=== PATIENT | female | born 1945 | race Caucasian/White ===

== ENCOUNTER 2017-01-21 19:16 | Observation (INO) | payer MEDICARE, BC ==
--- NOTE | ~2017-01-21 | HP ---
History And Physical [id number] [place]. [address] NAME: JC BAUTISTA : 49 STATUS : ADM Anthony PAT#: [id number] AGE: 71 ADM/REG DATE : 01/21/17 MR#: [id number] REPORT SERV DATE: 01/22/17 DICTATED BY: MUNIRA CHAPIN DATE: 01/22/17 REPORT STATUS : Draft TRANSCRIBED BY: KAMINI DATE: 01/22/17 DATE OF ADMISSION: 01/21/2017 CHIEF COMPLAINT: Atypical chest pain. HISTORY OF PRESENT ILLNESS: A very pleasant 71-year-old white female with no known history of CAD, states that for the last two days, she has been somewhat light headed. She reports a right-sided headache occurring yesterday after doing some housework around 1200 hours, she experienced some midsternal chest pain or pressure. The house work included some light sweeping and mopping, and making her bed. She reports associated shortness of breath and dizziness. Denies nausea, diaphoresis, or belching. She reports that the chest discomfort radiated up towards her jaw. At its most intense, she rated the chest pain as 7/10. At the time of interview in the CPOU, she rates it a 0, but has a residual "funny feeling and flutter." Review of bedside telemetry reveals no ectopy captured. She did take an aspirin prior to coming to the hospital. The patient denies any personal history of myocardial infarction, stroke, DVT, or pulmonary embolus. The patient was treated for the flu, 10/2016, describes rare palpitations. Consumes one cup of coffee per day. No syncopal episodes. Denies PND or orthopnea. PAST MEDICAL HISTORY: 1. Hypertension. 2. Dyslipidemia. 3. AODM. 4. GERD. 5. Chronic pain. 6. Gout. PAST SURGICAL HISTORY: 1. Cholecystectomy. 2. Hiatal hernia repair. 3. Right arm melanoma, removed. 4. Multiple skin cancers, removed. 5. Left arthroscopic repair of the left knee. 6. Hysterectomy. SOCIAL HISTORY: She is with two children. She is retired from [employer] Walks or works out three to four times weekly, most recently one week ago, limited by gout of the right great toe. Denies tobacco or illicits. Drinks socially. FAMILY HISTORY: Mother with questionable TIAs, at the age of 79. Father with heart attack in his 70s and 80s, at the age of 94 with a history of colon cancer. REVIEW OF SYSTEMS: A 14-point review of systems was performed, significant for HPI including home blood sugars of 115, and systolic blood pressure of 120. Otherwise complete review of systems was History And Physical [address] [address] NAME: JC BAUTISTA : 49 STATUS : ADM Anthony PAT#: [id number] AGE: 71 ADM/REG DATE : 01/21/17 MR#: [id number] REPORT SERV DATE: 01/22/17 DICTATED BY: MUNIRA CHAPIN DATE: 01/22/17 REPORT STATUS : Draft TRANSCRIBED BY: KAMINI DATE: 01/22/17 obtained and negative. ALLERGIES: NO KNOWN DRUG ALLERGIES. HOME MEDICAITONS: Lotrel 5/20 daily; Artificial Tears p.r.n.; atenolol 100 mg daily; diclofenac 75 mg nightly; Lasix 20 mg daily; hydrocodone 5/325 half to one tablet twice daily p.r.n.; melatonin 5 mg nightly; Glucophage 1000 mg in the morning, 500 p.r.n. at bedtime; omeprazole 40 mg daily; Pravachol 80 mg daily; Desyrel 50 mg nightly p.r.n.; and allopurinol p.r.n. PHYSICAL EXAMINATION: BLOOD PRESSURE: Bilateral blood pressures on arrival, right 170/79, left 179/83, this morning 158/72. PULSE: 67, RESPIRATORY RATE: 17, TEMPERATURE: 97.7, O2 saturation 97% on room air. HEIGHT: 5 feet 5 inches. WEIGHT: 156 pounds. BMI of 26 GENERAL: Cooperative, in no apparent distress. HEENT: Pupils 2 mm, sclera nonicteric. Nares patent. Moist mucous membranes. No xanthelasma. NECK: Trachea midline, no thyromegaly. No JVD. No bruits. LYMPH: No cervical lymphadenopathy. No supraclavicular lymphadenopathy. CHEST: Tender to palpation across the anterior chest wall eliciting a wince and withdrawal. CARDIOVASCULAR: Regular rate. No murmur, rub, or gallop appreciated. EXTREMITIES: Right great toe, inflamed and warm to touch. ABDOMEN: Soft, nontender, nondistended, normal bowel sounds auscultated throughout. No organomegaly. SKIN: Warm, dry extremities. No pallor, or cyanosis. PSYCHIATRIC: Appropriate affect. Alert, oriented x3. LABORATORY DATA: The troponin less than 0.02 x4. Potassium 4.6, BUN 20, creatinine 0.94, glucose 117, and magnesium 1.9. WBC 6.7, hemoglobin 11.7, hematocrit 34.8, and platelet count of 243,000. EKG; sinus rhythm. ASSESSMENT AND PLAN: 1. Atypical chest pain which is also reproducible on exam, but multiple risk factors. The patient has been observed in the CPOU overnight to rule out myocardial infarction with serial enzymes and serial EKGs and held n.p.o. We will proceed with MPI today. The patient will be discharged home if low risk, no ischemia. If anything suggestive of ischemia, Cardiology referral will be initiated. Otherwise, the patient will be asked to follow up with her PCP in one to two weeks with all studies being sent to that office. 2. Hypertension. Monitor blood pressure. Continue home medications as warranted. Hold beta-logan and CCB. Resume both after MPI. 3. Dyslipidemia. Continue statin. 4. Adult onset diabetes mellitus. Hold metformin, level 1 sliding scale correction as warranted. 5. Probable gout, right great toe, has allopurinol at home, instructed to take as prescribed and/or call PCP for renewal of prescription. History And Physical [address] [address] NAME: JC BAUTISTA : 49 STATUS : ADM Anthony PAT#: [id number] AGE: 71 ADM/REG DATE : 01/21/17 MR#: [id number] REPORT SERV DATE: 01/22/17 DICTATED BY: MUNIRA CHAPIN DATE: 01/22/17 REPORT STATUS : Draft TRANSCRIBED BY: KAMINI DATE: 01/22/17 JETT/KAMINI Munira Chapin, MSN, [employer] / [id number] CC: Munira Chapin, MSN, [facility] Verna Bauer D.O.
[2017-01-21 16:07] LABS: BASOPHILS 0.3 %; BASOPHILS ABSOLUTE 0.02 10/3/uL (0.0-0.16); EOSINOPHILS 1.3 %; EOSINOPHILS ABSOLUTE 0.09 10/3/uL (0.0-0.53); ER CBC TAT 0 Hrs 08 Mins; HEMATOCRIT 34.8 % (36.0-48.0); HEMOGLOBIN 11.7 g/dL (12.0-16.0); IMMATURE GRANULOCYTES 0.3 %; IMMATURE GRANULOCYTES ABSOLUTE 0.02 10/3/uL (0.0-0.11); LYMPHOCYTES 33.7 %; LYMPHOCYTES ABSOLUTE 2.27 10/3/uL (0.67-4.30); MEAN CORPUS HGB CONC 33.6 g/dL (32.0-36.0); MEAN CORPUSCULAR HEMOGLOB 30.9 pg (26.0-34.0); MEAN CORPUSCULAR VOLUME 91.8 fL (80-100); MEAN PLATELET VOLUME 9.6 fL (9.2-13.0); MONOCYTES 5.9 %; NEUTROPHILS 58.5 %; NEUTROPHILS ABSOLUTE 3.94 10/3/uL (2.02-8.40); PLATELET COUNT 243 10/3/uL (150-400); RBC DISTRIBUTION WIDTH 14.3 % (12.0-16.0); RED CELL COUNT 3.79 10/6/uL (4.0-5.6); WHITE BLOOD CELLS 6.7 10/3/uL (4.5-10.5)
[2017-01-21 16:09] LABS: MANUAL DIFF NO %
[2017-01-21 16:22] LABS: BUN (BLOOD UREA NITROGEN) 20 MG/DL (6-23); CALCIUM, SERUM 9.3 MG/DL (8.5-10.4); CHEST PAIN PROFILE TAT 0 Hrs 23 Mins; CHLORIDE, SERUM 100 MMOL/L (96-112); CO2 (CARBON DIOXIDE) 30 MMOL/L (24-34); CREATININE 0.94 MG/DL (0.55-1.02); GFR AFRICAN AMERICAN 72 ML/MIN (>=60); GFR NON AFRICAN AMERICAN 62 ML/MIN (>=60); POTASSIUM, SERUM 4.6 MMOL/L (3.5-5.3); SODIUM, SERUM 135 MMOL/L (135-148); TROPONIN I <0.02 NG/ML (<0.05)
[2017-01-21 16:23] LABS: GLUCOSE, SERUM 117 MG/DL (60-99)
[2017-01-21 16:27] LABS: PROTIME (NOT ORD) 13.2 SEC (12.0-14.5)
[2017-01-21 16:28] LABS: PARTIAL THROMBO TIME 34.9 SEC (22.5-37.2)
[~2017-01-21 19:16] MED LIST: ATEN100 PO; CADUET5 MG/20 MG PO; FLEX PO; GLUCOPHAGE1000 MG PO; L20 PO; MELATONIN5 M1 PO; NORCO1 TA1 PO; PRAVACHOL80 MG PO; PRILOSEC40 MG PO; TRAZ50 PO; VOLT75 PO
[2017-01-21] MEDS ORDERED: VOLT75 PO (19:17)
[2017-01-21] MEDS ORDERED: L20 PO (19:18)
[2017-01-21] MEDS ORDERED: LOTREL1 CA2 PO (19:18)
[2017-01-21] MEDS ORDERED: PRILOSEC40 MG PO (19:19)
[2017-01-21] MEDS ORDERED: NORCO1 TA1 PO (19:19)
[2017-01-21] MEDS ORDERED: PRAVACHOL80 MG PO (19:20)
[2017-01-21] MEDS ORDERED: ATEN100 PO (19:20)
[2017-01-21] MEDS ORDERED: TRAZ50 PO (19:20)
[2017-01-21] MEDS ORDERED: TEARS PURE OPH (19:21)
[2017-01-21] MEDS ORDERED: MELATONIN5 M1 PO (19:21)
[2017-01-21] MEDS ORDERED: GLUCOPHAGE1000 MG PO (19:27)
[2017-01-21] MEDS ORDERED: GLUCPH PO (19:28)
== END 2017-01-22 15:59 | disposition home or self-care (01) ==
LOC: ER 19:16 → CDU1 19:21
PROVIDERS: Nurse Practitioner
DX: R07.89 Other chest pain (principal); I10 Essential (primary) hypertension; E78.5 Hyperlipidemia, unspecified; E11.9 Type 2 diabetes mellitus without complications; K21.9 Gastro-esophageal reflux disease without esophagitis; G89.29 Other chronic pain; M10.9 Gout, unspecified; Z90.49 Acquired absence of other specified parts of digestive tract; Z90.710 Acquired absence of both cervix and uterus; Z82.49 Family history of ischemic heart disease and other diseases of the circulatory system; Z80.0 Family history of malignant neoplasm of digestive organs; Z79.84 Long term (current) use of oral hypoglycemic drugs; Z79.1 Long term (current) use of non-steroidal anti-inflammatories (NSAID); Z79.899 Other long term (current) drug therapy; Z98.890 Other specified postprocedural states
CPT/HCPCS: 71020; 78452; 80048; 82962; 83735; 84484; 85025; 85610; 85730; 93005; 93017; 96374; 96375; 96376; 99285; A9270-GY; A9502; G0378; J0360; J2405